=== PATIENT | female | born 1965 | race Native Hawaiian/Other Pacific Islander ===

== ENCOUNTER 2017-08-01 16:03 | Outpatient (CLI) | payer OTHER | END 2017-08-01 19:04 | disposition home or self-care (01) | LOC: RAD 16:03 | DX: M54.2 Cervicalgia (principal) ==

== ENCOUNTER 2018-03-06 16:32 | Outpatient (CLI) | payer OTHER | END 2018-03-06 22:00 | disposition home or self-care (01) | LOC: RAD 16:32 | DX: M25.561 Pain in right knee (principal); M25.562 Pain in left knee ==

== ENCOUNTER 2019-02-26 09:21 | Outpatient (CLI) | payer OTHER | END 2019-02-26 21:05 | disposition home or self-care (01) | LOC: CT 09:21 | DX: M79.645 Pain in left finger(s) (principal); R10.9 Unspecified abdominal pain ==

== ENCOUNTER 2019-06-24 09:23 | Outpatient (CLI) | payer OTHER | END 2019-06-25 05:47 | disposition home or self-care (01) | LOC: US 09:23 | DX: R10.11 Right upper quadrant pain (principal) ==

== ENCOUNTER 2021-02-06 13:51 | Outpatient (CLI) | payer OTHER | END 2021-02-06 19:00 | disposition home or self-care (01) | LOC: RAD 13:51 | PROVIDERS: ATTEND Family Medicine | DX: M25.561 Pain in right knee (principal); M25.562 Pain in left knee ==

== ENCOUNTER 2021-06-24 15:51 | Outpatient (CLI) | payer OTHER | END 2021-06-24 22:09 | disposition home or self-care (01) | LOC: RAD 15:51 | PROVIDERS: ATTEND Orthopaedic Surgery | DX: Z01.812 Encounter for preprocedural laboratory examination (principal); Z01.810 Encounter for preprocedural cardiovascular examination; M17.11 Unilateral primary osteoarthritis, right knee | CPT/HCPCS: 93005 ==